=== PATIENT | male | born 1970 | race Two or more races ===

== ENCOUNTER 2020-10-31 19:42 | Emergency (ER) | payer SELFPAY ==
[~2020-10-31] VITALS: Ht 170.2 cm; Wt 80.9 kg
[2020-10-31 23:18] LABS: BASO % 1 % (0-3); EOS # 0.1 x10^3/uL (0.0-0.7); EOS % 2 % (0-3); HEMATOCRIT 44.6 % (39.0-53.0); HEMOGLOBIN 15.2 g/dL (13.0-17.5); LYMPH # 1.6 x10^3/uL (1.0-4.8); LYMPH % 26 % (24-48); MEAN CORPUSCULAR HEMOGLOBIN 33 pg (25-35); MEAN CORPUSCULAR HGB CONC 34 g/dL (31-37); MEAN CORPUSCULAR VOLUME 96 fL (79-100); MONO # 0.6 x10^3/uL (0.0-1.1); MONO % 10 % (0-9); NEUT # 3.8 x10^3/uL (1.8-7.7); NEUT % 62 % (31-73); PLATELET COUNT 248 x10^3/uL (140-400); RED BLOOD COUNT 4.66 x10^6/uL (4.30-5.70); RED CELL DISTRIBUTION WIDTH 12.3 % (11.5-14.5); WHITE BLOOD COUNT 6.1 x10^3/uL (4.0-11.0)
[2020-10-31 23:23] LABS: CALCIUM 9.3 mg/dL (8.5-10.1); CREATININE 0.9 mg/dL (0.7-1.3); GFR 90.1; POTASSIUM 4.2 mmol/L (3.5-5.1)
--- NOTE | 2020-10-31 23:25 | PHYS DOC ---
Past Medical History Past Medical History: Anxiety, Hypertension Past Surgical History: Appendectomy, Other Additional Past Surgical Histo: left kidney removal ( donation) Smoking Status: Current Some Day Smoker Alcohol Use: Heavy Additional Information: 10-20 beers daily Drug Use: None General Adult EDM: Chief Complaint: ABDOMINAL PAIN HPI: HPI: Patient is a 49 year old male who presents with abdominal pain and discomfort. He reports feeling very "bloated" and "full" since yesterday morning. He also admits to intermittent episodes of chills, diaphoresis and diarrhea. He has tried drinking up to half a bottle of Pepto Bismol today with no relief of symptoms. He admits to having contact with this two daughters this week who were tested positive for COVID-19 earlier this week. Denies dysuria, bloody stools, or nausea/vomiting. He admits to drinking 10-20 beers a night and wonders if it could be due to his alcohol consumption. Review of Systems: Review of Systems: Constitutional: +chills, + diaphoresis. Denies fever. Eyes: Denies redness or eye pain HENT: Denies nasal congestion or sore throat Respiratory: Denies cough or shortness of breath Cardiovascular: Denies chest pain or palpitations GI: +abdominal pain. +abdominal bloating. Denies nausea or vomiting : Denies dysuria or hematuria Neurologic: Denies headache, focal weakness or sensory changes Complete systems were reviewed and found to be within normal limits, except as documented in this note. Family History: Family History: 2 daughters - tested positive for COVID-19 earlier this week. Current Medications: Current Medications Medications (Trade) Dose Ordered Sig/[facility] Start Time Stop Time Status Last Admin Dose Admin Famotidine (Pepcid Vial) 20 mg 1X ONCE 10/31/20 23:30 10/31/20 23:31 Ketorolac Tromethamine (Toradol 15mg Vial) 15 mg 1X ONCE 10/31/20 23:30 10/31/20 23:31 Sodium Chloride 1,000 ml @ 1,000 mls/hr 1X ONCE 10/31/20 23:30 11/01/20 00:29 Allergies: Allergies: Allergies Coded Allergies Type Severity Reaction Last Updated Verified No Known Drug Allergies 05/14/15 No Physical Exam: PE: Constitutional: Well developed, well nourished, no acute distress, non-toxic appearance HENT: Normocephalic, atraumatic Eyes: conjunctiva injected bilaterally, no discharge Lungs & Thorax: No respiratory distress, equal chest rise and fall Abdomen: Soft, distended, diffuse tenderness to palpation Extremities: No tenderness, ROM intact, no edema Neurologic: Alert and oriented X 3, normal motor function, normal sensory function, no focal deficits noted Psychologic: Affect normal, judgment normal Current Patient Data: Vital Signs: Vital Signs Date Time Temp Pulse Resp B/P (MAP) Pulse Ox O2 Delivery O2 Flow Rate FiO2 10/31/20 19:50 98.1 113 20 185/101 (129) 97 Room Air 98.1 Radiology/Procedures: Radiology/Procedures: PROCEDURE: CT ABD PELV W/ IV CONTRST ONLY PQRS Compliance Statement: One or more of the following individualized dose reduction techniques were utilized for this examination: 1. Automated exposure control 2. Adjustment of the mA and/or kV according to patient size 3. Use of iterative reconstruction technique CT abdomen/pelvis with contrast 10/31/2020 12:13 AM INDICATION: Diffuse pain, distention and diarrhea COMPARISON: None available TECHNIQUE: Multiple axial CT images of the abdomen and pelvis were obtained after the intravenous administration of nonionic contrast. Coronal and sagittal reformats are provided. FINDINGS: Lung bases are clear. Heart size is within normal limits. Mild hepatic steatosis. Spleen, bilateral adrenal glands, pancreas and gallbladder are normal in appearance. The abdominal aorta is normal in course and caliber. There are no pathologically enlarged lymph nodes in the abdomen and pelvis. There is no abdominal free fluid. There is no free intraperitoneal air. Oral contrast was administered. Opacified bowel loops demonstrate normal mucosal fold pattern. Small and large bowel are normal in caliber. There is no evidence for bowel obstruction. There are no pericolonic inflammatory changes. A normal, nondilated appendix is visualized without adjacent inflammatory changes. There is a single right kidney. Normal appearance of the kidney without hydronephrosis or suspicious renal mass. Urinary bladder is within normal limits in degree of distention. Prostate and seminal vesicles are normal. No suspicious osseous abnormality is identified. IMPRESSION: 1. No acute abnormality is identified within the abdomen and pelvis. 2. Single right kidney without suspicious mass or hydronephrosis. 3. Mild hepatic steatosis. Electronically signed by: Monserrat Acevedo MD (11/01/2020 12:21 AM) [facility] Course & Med Decision Making: Course & Med Decision Making Pertinent Labs and Imaging studies reviewed. (See chart for details) Pt presents with 2 days of abdominal discomfort and pain. Admits to contact with 2 daughters who were tested positive for COVID-19 earlier this week. Associated chills, diaphoresis, diarrhea with abdominal pain. Differentials include viral gastroenteritis from COVID-19 vs colitis vs gas discomfort. CT abdomen obtained without acute process. Labs obtained and posted to chart. COVID precautions in place. COVID testing pending. Patient stable for discharge with outpatient follow-up with PCP/GI. GI referral provided. Discussed findings and plan with patient, who acknowledges understan ding and agreement. COVID-19 CRITERIA: The patient was evaluated during the global COVID-19 pandemic, and that diagnosis was suspected/considered upon their initial presentation. Their evaluation, treatment and testing was consistent with current guidelines for patients who present with complaints or symptoms that may be related to COVID-19. Dragon Disclaimer: Dragon Disclaimer: This electronic medical record was generated, in whole or in part, using a voice recognition dictation system. Departure Departure Impression: Primary Impression: Abdominal pain Qualified Codes: R10.84 - Generalized abdominal pain Additional Impression: Suspected 2019 novel coronavirus infection Disposition: 01 DC HOME SELF CARE/HOMELESS Condition: STABLE Referrals: NO PCP (PCP) MELISSA HICKEY MD Patient Instructions: Abdominal Pain (Nonspecific), Diet for Diarrhea, Adult Additional Instructions: Definicin Se le realiz la prueba de deteccin del COVID-19 o se le diagnostic dicha enfermedad. Es jose infeccin ocasionada por un nuevo tipo de coronavirus. En la mayora de los casos, el COVID-19 provoca sntomas similares a los del resfriado. En algunas personas, puede ocasionar sntomas ms graves, abhinav problemas respiratorios. No existe un tratamiento para el virus COVID-19. El cuerpo elimina la infeccin con el tiempo. El cuidado personal ayuda a aliviar el malestar. Pasos que debe seguir 1. Cuidados personales Descanse cuando sea necesario. Los hbitos saludables pueden ayudarlo a sentirse mejor. Algunas medidas para lograr cambios incluyen lo siguiente: - Elija alimentos saludables, abhinav frutas y verduras. Tasia abundante cantidad de agua estella todo el da. - Duerma caitie por la noche. - Si fuma, intente no hacerlo. [address] ayudar a mejorar la respiracin. - Evite el alcohol. 2. Mantenga sanos a los dems El virus puede contagiarse a otras personas. Cada vez que estornuda o tose, se liberan gotitas. Las gotitas pueden entrar en la boca, la nariz o los ojos de las per sonas que se encuentran cerca de usted y ocasionar la infeccin. Para reducir las probabilidades de contagiar el virus COVID-19 a otros, tenga en cuenta lo siguiente: - Qudese en casa el tiempo que el mdico se lo indique. Es posible que deba quedarse en casa hasta que la enfermedad desaparezca. Salga nicamente para recibir atencin mdica o en daxa de urgencia. - Evite las reas pblicas, los eventos o el transporte pblico. No reanude las actividades laborales o escolares hasta que el mdico lo autorice. - Llame previamente si necesita asistir a un centro mdico. Avise que es posible que haya contrado COVID-19. [address] ayudar a que le indiquen adonde debe dirigirse. Rosaline pueden pedirle que use jose mscara facial cuando vaya al consultorio. Si llama a los servicios de asistencia mdica de urgencias, avseles que es posible que haya contrado COVID-19. Mientras est en casa: - Evite el contacto directo con otras personas. Mantngase a jose distancia aproximada de 2 metros. Si es posible, pasen la mayor parte del tiempo en chance separadas. - Use jose mscara facial si estar en contacto directo con otras personas, por ejemplo, si compartir jose habitacin o un vehculo. - Pida a alguien que limpie las superficies comunes de la casa. Limpie picaportes, mesadas y lavamanos con limpiadores domsticos todos los rosario. - Al toser o estornudar, cbrase con un pauelo de papel. Despus de usarlo, deschelo de inmediato. Si no tiene un pauelo de papel, tosa o estornude en el pliegue del codo. - Lvese las bridgett con frecuencia. Lvese las bridgett despus de estornudar o toser. Lvese con agua y jabn estella, al menos, 20 segundos. Si no dispone de agua y jabn, use un limpiador de bridgett a base de alcohol. - No cocine para otros. Evite compartir objetos personales, abhinav tenedores, cucharas o cepillos de dientes. - Mientras est enfermo, evite el contacto directo con las mascotas. No hay indicios de si el virus se transmite a las mascotas. Esta es jose medida de seguridad que debe tenerse en cuenta hasta que se sepa ms acerca de joey virus. El aislamiento puede ser frustrante. La interaccin social puede ayudar. Mantn gase en contacto con amigos y familiares por telfono u otros medios tecnolgicos. Puede interactuar con otras personas en el hogar, faraz mantenga jose distancia melton de aproximadamente 2 metros. Seguimiento Las pruebas para confirmar la presencia del COVID-19 pueden demorar algunos rosario. Es posible que deba seguir los pasos mencionados anteriormente hasta que estn los resul tados de las pruebas. Lo llamarn del consultorio mdico para saber si elaine habido algn cambio en lawson juan. Rosaline le avisarn cuando pueda volver a estar cerca de otras personas. Problemas a los que debe estar atento Comunquese con el mdico si no se recupera segn lo previsto o si tiene problemas abhinav los siguientes: - Dificultad para respirar - Dolor de pecho - Empeoramiento de los sntomas Si juno que tiene jose urgencia, llame a los servicios de asistencia mdica de urgencias de inmediato. As taken from [facility] Famotidine (PEPCID) 20 Mg Tablet 20 MG PO BID for 10 Days, #20 TAB Prov: GILBERT HAIRSTON DO 11/01/20 Hyoscyamine Sulfate (LEVSIN-SL) 0.125 Mg Tab.subl 0.125 MG SL Q4-6HRS PRN for PAIN, #14 TAB Prov: GILBERT HAIRSTON DO 11/01/20 COVID-19 Assessment: COVID-19 Patient Risks: Age 65 or older: No Sign of co-morbidity: No Exp to person + for COVID: Yes Exp to PUI: No Travel from affected area: No Lower respiratory symptoms: No Fever: No Other: Yes PPE Use: Full PPE with N95 mask or PAPR: Yes GILBERT HAIRSTON DO Oct 31, 2020 23:25
[2020-10-31 23:29] LABS: ALBUMIN/GLOBULIN RATIO 1.1 (1.0-1.7); MAGNESIUM 2.1 mg/dL (1.8-2.4); TOTAL BILIRUBIN 0.4 mg/dL (0.2-1.0); TOTAL PROTEIN 7.8 g/dL (6.4-8.2)
[2020-10-31] MEDS ORDERED: FAMOTIDINE 20 MG/2 ML VIAL IVP ONE (23:30)
[2020-10-31] MEDS ORDERED: KETOROLAC 15 MG/ML VIAL. IVP ONE (23:30)
[2020-10-31] MEDS ORDERED: IV NORMAL SALINE 1000ML BAG 1,000 ML IV ONE (23:30)
[2020-10-31 23:37] LABS: BILIRUBIN,URINE NEGATIVE (NEG); CLARITY,URINE CLEAR; COLOR,URINE YELLOW; NITRITE,URINE NEGATIVE (NEG); PH,URINE 6.5 (<5.0-8.0); PROTEIN,URINE NEGATIVE (NEG-TRACE); UROBILINOGEN,URINE 0.2 mg/dL (0.2 mg/dL)
[2020-10-31 23:46] LABS: BACTERIA,URINE 0 /HPF (0-FEW); RBC,URINE 0 /HPF (0-2); WBC,URINE 0 /HPF (0-4)
[2020-11-01] MEDS ORDERED: CONTRAST GIVEN. MC PRN (00:15)
--- NOTE | 2020-11-01 00:23 | RAD ---
PQRS Compliance Statement: One or more of the following individualized dose reduction techniques were utilized for this examinat ion: 1. Automated exposure control 2. Adjustment of the mA and/or kV according to patient size 3. Use of iterative reconstruction technique CT abdomen/pelvis with contrast 10/31/2020 12:13 AM INDICATION: Diffuse pain, distention and diarrhea COMPARISON: None available TECHNIQUE: Multiple axial CT images of the abdomen and pelvis were obtained after the intravenous adm inistration of nonionic contrast. Coronal and sagittal reformats are provided. FINDINGS: Lung bases are clear. Heart size is within normal limits. Mild hepatic steatosis. Spleen, bilateral a drenal glands, pancreas and gallbladder are normal in appearance. The abdominal aorta is normal in course and caliber. There are no pathologically enlarged lymph nodes in the abdomen and pelvis. There is no abdominal free fluid. There is no free intraperitoneal air. Oral contrast was administered. Opacified bowel loops demonstrate normal mucosal fold pattern. Small and large bowel are normal in caliber. There is no evidence for bowel obstruction. There are no peric olonic inflammatory changes. A normal, nondilated appendix is visualized without adjacent inflammator y changes. There is a single right kidney. Normal appearance of the kidney without hydronephrosis or suspicious renal mass. Urinary bladder is within normal limits in degree of distention. Prostate and seminal ves icles are normal. No suspicious osseous abnormality is identified. IMPRESSION: 1. No acute abnormality is identified within the abdomen and pelvis. 2. Single right kidney without suspicious mass or hydronephrosis. 3. Mild hepatic steatosis. Electronically signed by: Monserrat Acevedo MD (11/01/2020 12:21 AM) [facility]
[2020-11-01] MEDS ORDERED: IOHEXOL 300 MG/ML 100ML VIAL. IV ONE (00:30)
[2020-11-01] MEDS ORDERED: HYOS0.1265 SL (00:49)
[2020-11-01] MEDS ORDERED: FAMO-63 PO (00:49)
[2020-11-01 00:52] VITALS: BP 134/88
--- NOTE | 2020-11-04 14:09 | NUR ---
IP: Informed pt of negative COVID results. Pt verbalized understanding.
== END 2020-11-01 01:00 | disposition home or self-care (01) ==
LOC: ER 19:42
DX: R10.84 Generalized abdominal pain (principal); Z20.828 Contact with and (suspected) exposure to other viral communicable diseases; R19.7 Diarrhea, unspecified; R14.0 Abdominal distension (gaseous); F41.9 Anxiety disorder, unspecified; I10 Essential (primary) hypertension; F10.10 Alcohol abuse, uncomplicated; Z87.891 Personal history of nicotine dependence; Z98.890 Other specified postprocedural states; Z90.89 Acquired absence of other organs
CPT/HCPCS: 36415; 74177; 80053; 81001; 83605; 83690; 83735; 85025; 96361; 96374; 96375; 99285; C9803; J1885; J3490; J7030; Q9967; U0003

== ENCOUNTER 2021-02-25 20:36 | Emergency (ER) | payer SELFPAY ==
[~2021-02-25] VITALS: Ht 162.6 cm; Wt 77.2 kg
[~2021-02-25 20:36] MED LIST: FAMO-63 PO; HYOS0.1265 SL
[2021-02-25 20:40] VITALS: BP 150/98
--- NOTE | 2021-02-25 21:35 | PHYS DOC ---
Past Medical History Past Medical History: Anxiety, Hypertension Past Surgical History: Appendectomy, Other Additional Past Surgical Histo: left kidney removal ( donation) Smoking Status: Current Some Day Smoker Alcohol Use: Heavy Drug Use: None General Adult EDM: Chief Complaint: ABDOMINAL PAIN HPI: HPI: Patient is a 50 year old male who presented to ER due to epigastric abdominal pain with nausea vomiting for 2 weeks. Patient admitted of heavy alcohol drinking every day. Patient denies any medical history, not on any medication chronically. Patient has history of left nephrectomy for donation, appendectomy Review of Systems: Review of Systems: Constitutional: Denies fever or chills. [] Eyes: Denies change in visual acuity. [] HENT: Denies nasal congestion or sore throat. [] Respiratory: Denies cough or shortness of breath. [] Cardiovascular: Denies chest pain or edema. [] GI: Positive for abdominal pain, nausea vomiting, no diarrhea : Denies dysuria. [] Musculoskeletal: Denies back pain or joint pain. [] Integument: Denies rash. [] Neurologic: Denies headache, focal weakness or sensory changes. [] Endocrine: Denies polyuria or polydipsia. [] Lymphatic: Denies swollen glands. [] Psychiatric: Denies depression or anxiety. [] Heart Score: C/O Chest Pain: N/A Risk Factors: Risk Factors: DM, Current or recent (<one month) smoker, HTN, HLP, family history of CAD, obesity. Risk Scores: Score 0 - 3: 2.5% MACE over next 6 weeks - Discharge Home Score 4 - 6: 20.3% MACE over next 6 weeks - Admit for Clinical Observation Score 7 - 10: 72.7% MACE over next 6 weeks - Early Invasive Strategies Allergies: Allergies: Allergies Coded Allergies Type Severity Reaction Last Updated Verified No Known Drug Allergies 05/14/15 No Physical Exam: PE: Constitutional: Well developed, well nourished, no acute distress, non-toxic appearance. [] HENT: Normocephalic, atraumatic, bilateral external ears normal, oropharynx moist, no oral exudates, nose normal. [] Eyes: PERRLA, EOMI, conjunctiva normal, no discharge. [] Neck: Normal range of motion, no tenderness, supple, no stridor. [] Cardiovascular:Heart rate regular rhythm, no murmur [] Lungs & Thorax: Bilateral breath sounds clear to auscultation [] Abdomen: Bowel sounds normal, soft, There is tenderness to palpation in epigastric area, no masses, no pulsatile masses. [] Skin: Warm, dry, no erythema, no rash. [] Back: No tenderness, no CVA tenderness. [] Extremities: No tenderness, no cyanosis, no clubbing, ROM intact, no edema. [] Neurologic: Alert and oriented X 3, normal motor function, normal sensory function, no focal deficits noted. [] Psychologic: Affect normal, judgement normal, mood normal. [] Current Patient Data: Labs: Laboratory Tests Test 02/25/21 21:40 White Blood Count 5.5 x10^3/uL Red Blood Count 4.70 x10^6/uL Hemoglobin 15.4 g/dL Hematocrit 44.1 % Mean Corpuscular Volume 94 fL Mean Corpuscular Hemoglobin 33 pg Mean Corpuscular Hemoglobin Concent 35 g/dL Red Cell Distribution Width 12.5 % Platelet Count 264 x10^3/uL Neutrophils (%) (Auto) 60 % Lymphocytes (%) (Auto) 30 % Monocytes (%) (Auto) 8 % Eosinophils (%) (Auto) 2 % Basophils (%) (Auto) 1 % Neutrophils # (Auto) 3.3 x10^3/uL Lymphocytes # (Auto) 1.7 x10^3/uL Monocytes # (Auto) 0.4 x10^3/uL Eosinophils # (Auto) 0.1 x10^3/uL Basophils # (Auto) 0.0 x10^3/uL Sodium Level 139 mmol/L Potassium Level 4.0 mmol/L Chloride Level 99 mmol/L Carbon Dioxide Level 26 mmol/L Anion Gap 14 Blood Urea Nitrogen 7 mg/dL Creatinine 0.9 mg/dL Estimated GFR (Cockcroft-Gault) 89.7 BUN/Creatinine Ratio 8 Glucose Level 103 mg/dL Calcium Level 8.6 mg/dL Magnesium Level 2.3 mg/dL Total Bilirubin 0.5 mg/dL Aspartate Amino Transf (AST/SGOT) 85 U/L Alanine Aminotransferase (ALT/SGPT) 66 U/L Alkaline Phosphatase 89 U/L Total Protein 8.0 g/dL Albumin 4.2 g/dL Albumin/Globulin Ratio 1.1 Lipase 141 U/L Ethyl Alcohol Level 233 mg/dL Current Medications Medications (Trade) Dose Ordered Sig/Torie Route PRN Reason Start Time Stop Time Status Last Admin Dose Admin Sodium Chloride 1,000 ml @ 1,000 mls/hr 1X ONCE IV 02/25/21 22:00 02/25/21 22:59 DC 02/25/21 21:48 Ondansetron HCl (Zofran) 4 mg 1X ONCE IVP 02/25/21 22:00 02/25/21 22:01 DC 02/25/21 21:48 Famotidine (Pepcid Vial) 20 mg 1X ONCE IVP 02/25/21 22:00 02/25/21 22:01 DC 02/25/21 21:48 Multi-Ingredient Mouthwash/Gargle (Gi Cocktail) 20 ml 1X ONCE SWSW 02/25/21 22:30 02/25/21 22:31 DC 02/25/21 22:28 Iohexol (Omnipaque 300 Mg/ml) 75 ml 1X ONCE IV 02/25/21 23:30 02/25/21 23:31 DC 02/25/21 23:00 Info (CONTRAST GIVEN -- Rx MONITORING) 1 each PRN DAILY PRN MC SEE COMMENTS 02/25/21 23:00 02/26/21 00:42 DC Vital Signs: Vital Signs Date Time Temp Pulse Resp B/P (MAP) Pulse Ox O2 Delivery O2 Flow Rate FiO2 02/25/21 20:40 98.0 90 20 150/98 (115) 97 Room Air 98.0 EKG: EKG: [] Radiology/Procedures: Radiology/Procedures: [][facility] [address] [place], [place] [id number] IMAGING REPORT Signed PATIENT: PRIYANKA SCHROEDERCCOUNT: [id number] : 1970 LOCATION: ER AGE: 50 SEX: M EXAM STATUS: REG ER ORD. PHYSICIAN: ANYI PABLO DO REASON: ABDOMINAL PAIN, NAUSEA AND VOMITING PROCEDURE: CT ABD PELV W/ IV CONTRST ONLY CT abdomen pelvis with contrast dated 02/25/2021. No comparison available. CLINICAL INDICATION: Abdominal pain nausea vomiting. TECHNIQUE: Contiguous axial imaging the abdomen pelvis performed after the administration of intravenous Isovue-370. One or more of the following individualized dose reduction techniques were utilized for this examination: 1. Automated exposure control 2. Adjustment of the mA and/or kV according to patient size 3. Use of iterative reconstruction technique. FINDINGS: Limited images of the lung bases are clear. Minimal linear scar or atelectasis in the lower lobes. Heart size within normal limits. No pleural or pericardial effusion. Liver, spleen, pancreas, adrenal glands and gallbladder are unremarkable. The right kidney is within normal limits. Left kidney is not identified and may be congenitally or surgically absent. Unopacified GI tract normal in caliber and contour. No focal bowel wall thickening. No inflammatory stranding in the mesentery. No ascites or lymphadenopathy. The appendix is not clearly identified. No inflammatory changes in the right lower quadrant. Images of pelvis show moderately distended urinary bladder. Prostate gland normal in size. No free fluid or pelvic lymphadenopathy. Bone windows show no acute findings. Multilevel spondylosis. IMPRESSION: 1. No acute abnormality of abdomen or pelvis. 2. Distended urinary bladder. 3. The left kidney is not identified and may be congenitally or surgically absent. Electronically signed by: Kirby Severino MD (02/25/2021 11:21 PM) [facility] DICTATED and SIGNED BY: KIRBY SEVERINO MD DATE: 02/25/21 [id number] 0 Course & Med Decision Making: Course & Med Decision Making Pertinent Labs and Imaging studies reviewed. (See chart for details) [Patient is a 50-year-old male who was an alcoholic, presented to ER due to epigastric abdominal pain. CT scan his abdomen pelvic did not show any acute problem. Patient is most likely has gastritis. Patient was prescribed Carafate and Prilosec to take. Patient was instructed to follow-up with his family physician for referral to GI specialist for further evaluation and treatment. Kayy Disclaimer: Kayy Disclaimer: This electronic medical record was generated, in whole or in part, using a voice recognition dictation system. Departure Departure Impression: Primary Impression: Gastritis Additional Impression: Alcohol abuse Disposition: HOME / SELF CARE / HOMELESS Condition: IMPROVED Referrals: NO PCP (PCP) Please follow up with [facility] this week. [address], [address] [place] [address] Phone number: [phone] Patient Instructions: Alcohol Intoxication, Gastritis, Adult Additional Instructions: Thank you for visiting our Emergency Department. We appreciate you trusting us with your care. If any additional problems come up don't hesitate to return to visit us. Please follow up with your primary care provider so they can plan additional care if needed and know about the problem that you had. If symptoms worsen come back to the Emergency Department. Any concerning symptoms that start such as chest pain, shortness of air, weakness or numbness on one side of the body, running high fevers or any other concerning symptoms return to the ER. Scripts Omeprazole Magnesium (PRILOSEC OTC) 20 Mg Tablet. 1 TAB PO DAILY for 30 Days, #30 TAB 0 Refills Prov: ANYI PABLO DO 02/26/21 Sucralfate (CARAFATE) 1 Gm Tablet 1 TAB PO QID for 14 Days, #56 TAB 0 Refills Prov: ANYI PABLO DO 02/26/21 ANYI PABLO DO Feb 25, 2021 21:35
[2021-02-25 21:48] LABS: BASO % 1 % (0-3); EOS # 0.1 x10^3/uL (0.0-0.7); EOS % 2 % (0-3); HEMATOCRIT 44.1 % (39.0-53.0); HEMOGLOBIN 15.4 g/dL (13.0-17.5); LYMPH # 1.7 x10^3/uL (1.0-4.8); LYMPH % 30 % (24-48); MEAN CORPUSCULAR HEMOGLOBIN 33 pg (25-35); MEAN CORPUSCULAR HGB CONC 35 g/dL (31-37); MEAN CORPUSCULAR VOLUME 94 fL (79-100); MONO # 0.4 x10^3/uL (0.0-1.1); MONO % 8 % (0-9); NEUT # 3.3 x10^3/uL (1.8-7.7); NEUT % 60 % (31-73); PLATELET COUNT 264 x10^3/uL (140-400); RED CELL DISTRIBUTION WIDTH 12.5 % (11.5-14.5); WHITE BLOOD COUNT 5.5 x10^3/uL (4.0-11.0)
[2021-02-25] MEDS ORDERED: ONDANSETRON PF 4 MG/2 ML VIAL. IVP ONE (22:00)
[2021-02-25] MEDS ORDERED: FAMOTIDINE 20 MG/2 ML VIAL IVP ONE (22:00)
[2021-02-25] MEDS ORDERED: IV NORMAL SALINE 1000ML BAG 1,000 ML IV ONE (22:00)
[2021-02-25 22:05] LABS: CALCIUM 8.6 mg/dL (8.5-10.1); CREATININE 0.9 mg/dL (0.7-1.3); GFR 89.7
[2021-02-25 22:10] LABS: ALBUMIN 4.2 g/dL (3.4-5.0); ALBUMIN/GLOBULIN RATIO 1.1 (1.0-1.7); MAGNESIUM 2.3 mg/dL (1.8-2.4); TOTAL BILIRUBIN 0.5 mg/dL (0.2-1.0)
[2021-02-25] MEDS ORDERED: LIDO:MAALOX 1:1 20 ML SINGLE DOSE. SWSW ONE (22:30)
[2021-02-25] MEDS ORDERED: CONTRAST GIVEN. MC PRN (23:00)
--- NOTE | 2021-02-25 23:24 | RAD ---
CT abdomen pelvis with contrast dated 02/25/2021. No comparison available. CLINICAL INDICATION: Abdominal pain nausea vomiting. TECHNIQUE: Contiguous axial imaging the abdomen pelvis performed after the administration of intravenous Isovue- 370. One or more of the following individualized dose reduction techniques were utilized for this examinat ion: 1. Automated exposure control 2. Adjustment of the mA and/or kV according to patient size 3. Use of iterative reconstruction technique. FINDINGS: Limited images of the lung bases are clear. Minimal linear scar or atelectasis in the lower lobes. He art size within normal limits. No pleural or pericardial effusion. Liver, spleen, pancreas, adrenal glands and gallbladder are unremarkable. The right kidney is within normal limits. Left kidney is not identified and may be congenitally or surgically absent. Unopacified GI tract normal in caliber and contour. No focal bowel wall thickening. No inflammatory s tranding in the mesentery. No ascites or lymphadenopathy. The appendix is not clearly identified. No inflammatory changes in the right lower quadrant. Images of pelvis show moderately distended urinary bladder. Prostate gland normal in size. No free fl uid or pelvic lymphadenopathy. Bone windows show no acute findings. Multilevel spondylosis. IMPRESSION: 1. No acute abnormality of abdomen or pelvis. 2. Distended urinary bladder. 3. The left kidney is not identified and may be congenitally or surgically absent. Electronically signed by: Kirby Severino MD (02/25/2021 11:21 PM) [facility]
[2021-02-25] MEDS ORDERED: IOHEXOL 300 MG/ML 100ML VIAL. IV ONE (23:30)
[2021-02-26] MEDS ORDERED: OMEP20TA63 PO (00:25)
[2021-02-26] MEDS ORDERED: SUCR1TAB35 PO (00:25)
== END 2021-02-26 00:40 | disposition home or self-care (01) ==
LOC: ER 20:36
DX: K29.70 Gastritis, unspecified, without bleeding (principal); F10.10 Alcohol abuse, uncomplicated; R10.13 Epigastric pain; R11.2 Nausea with vomiting, unspecified; F41.9 Anxiety disorder, unspecified; I10 Essential (primary) hypertension; Z98.890 Other specified postprocedural states
CPT/HCPCS: 36415; 74177; 80053; 83690; 83735; 85025; 96361; 96374; 96375; 99285; G0480; J2405; J3490; J7030; Q9967

== ENCOUNTER 2021-06-26 22:15 | Emergency (ER) | payer SELFPAY ==
[~2021-06-26 22:15] MED LIST changes: +OMEP20TA63 PO; +SUCR1TAB35 PO
== END 2021-06-26 23:27 | disposition left against medical advice (07) ==
LOC: ER 22:15
DX: R06.02 Shortness of breath (principal); Z53.21 Procedure and treatment not carried out due to patient leaving prior to being seen by health care provider